=== PATIENT | male | born 1965 | race Caucasian/White ===

== ENCOUNTER 2016-08-25 15:39 | Emergency (ER) | payer OTHER | END 2016-08-25 16:21 | disposition left against medical advice (07) | LOC: ER1 15:39 | DX: Z53.21 Procedure and treatment not carried out due to patient leaving prior to being seen by health care provider (principal) ==

== ENCOUNTER 2020-10-20 19:23 | Emergency (ER) | payer OTHER ==
[~2020-10-20 19:23] MED LIST: IBUPROFEN800 MG PO
[2020-10-20] MEDS ORDERED: CEPHALEXIN500 MG PO (20:15)
== END 2020-10-20 20:28 | disposition home or self-care (01) ==
LOC: ER1 19:23
DX: L03.115 Cellulitis of right lower limb (principal); E11.9 Type 2 diabetes mellitus without complications; J45.909 Unspecified asthma, uncomplicated; I11.9 Hypertensive heart disease without heart failure; Z79.82 Long term (current) use of aspirin
CPT/HCPCS: 99283

== ENCOUNTER 2021-03-01 12:53 | Emergency (ER) | payer OTHER ==
[~2021-03-01 12:53] MED LIST changes: +CEPHALEXIN500 MG PO
[2021-03-01] MEDS ORDERED: IBUPROFEN600 MG PO (15:51)
[2021-03-01] MEDS ORDERED: BACTROBAN OINT22 GM EXT (15:51)
[2021-03-01] MEDS ORDERED: CEPHALEXIN500 M1 PO (15:51)
== END 2021-03-01 15:57 | disposition home or self-care (01) ==
LOC: ER1 12:53
DX: S56.322A Laceration of extensor or abductor muscles, fascia and tendons of left thumb at forearm level, initial encounter (principal); S61.012A Laceration without foreign body of left thumb without damage to nail, initial encounter; I11.9 Hypertensive heart disease without heart failure; E78.5 Hyperlipidemia, unspecified; Z95.5 Presence of coronary angioplasty implant and graft; Z23 Encounter for immunization; W26.0XXA Contact with knife, initial encounter
CPT/HCPCS: 12002; 90471; 90715; 99283